=== PATIENT | male | born 1940 | race Caucasian/White ===

== ENCOUNTER 2021-04-09 10:12 | Emergency (ER) | payer MEDICAID ==
[~2021-04-09] VITALS: Ht 170.2 cm; Wt 105.0 kg
[2021-04-09] MEDS ORDERED: ACETAMINOPHEN 325MG TABLET PO STA (11:28)
[2021-04-09] MEDS ORDERED: ONDANSETRON 4MG ODT PO STA (11:28)
[2021-04-09 11:56] LABS: BASOPHILS % 0.5 % (0.0-2.0); EOSINOPHILS % 0.7 % (0.0-5.0); HEMATOCRIT. 36.9 % (42.0-52.0); HEMOGLOBIN. 12.7 g/dL (14.0-18.0); LYMPHOCYTES % 18.3 % (20.0-50.0); MEAN CORPUSCULAR HEMOGLOBIN 31.8 pg (28.0-32.0); MEAN CORPUSCULAR VOLUME 92.5 fL (80.0-94.0); MEAN PLATELET VOLUME 8.8 fl (7.4-10.4); MONOCYTES % 7.6 % (2.0-8.0); NEUTROPHILS % 72.9 % (40.0-76.0); PLATELET 340 x1000/uL (130-400); RED BLOOD CELL COUNT 3.98 mill/uL (4.7-6.1); RED CELL DISTRIBUTION WIDTH 13.1 % (11.6-14.6)
[2021-04-09 11:58] LABS: CHLORIDE 95 mEq/L (98-107)
[2021-04-09] MEDS ORDERED: TOPUD PO (13:20)
[2021-04-09 13:25] VITALS: BP 140/71
== END 2021-04-09 13:35 | disposition home or self-care (01) ==
LOC: ER 10:12
DX: M54.5 Low back pain (principal); M17.0 Bilateral primary osteoarthritis of knee; R51.9 Headache, unspecified; M41.85 Other forms of scoliosis, thoracolumbar region; E11.9 Type 2 diabetes mellitus without complications; D64.9 Anemia, unspecified
CPT/HCPCS: 36415; 72100; 73560; 80053; 85025; 99284; Q0162